=== PATIENT | female | born 1990 | race Hispanic/Latino ===

== ENCOUNTER 2021-07-17 09:26 | Outpatient (CLI) | payer OTHER | END 2021-07-17 09:27 | disposition home or self-care (01) | LOC: CSHMAMMO 09:26 | PROVIDERS: ATTEND Family Medicine | DX: N63.13 Unspecified lump in the right breast, lower outer quadrant (principal); N63.15 Unspecified lump in the right breast, overlapping quadrants; N63.11 Unspecified lump in the right breast, upper outer quadrant; N63.23 Unspecified lump in the left breast, lower outer quadrant; N63.21 Unspecified lump in the left breast, upper outer quadrant; N63.24 Unspecified lump in the left breast, lower inner quadrant | CPT/HCPCS: 77066; G0279 ==

== ENCOUNTER 2022-05-09 08:30 | Outpatient (CLI) | payer BC | END 2022-05-09 08:31 | disposition home or self-care (01) | LOC: CSHLAB 08:30 | PROVIDERS: ATTEND Obstetrics & Gynecology | DX: Z20.822 Contact with and (suspected) exposure to COVID-19 (principal) | CPT/HCPCS: U0003; U0005 ==

== ENCOUNTER 2022-05-12 04:46 | Inpatient (IN) | payer BC ==
[2022-05-12] MEDS: Lactated Ringer's 1,000 ML IV SCH ×2 (05:12→15:27)
[2022-05-12 05:23] VITALS: BMI 27.1
[2022-05-12] MEDS ORDERED: Lidocaine 1% (PF) 30 ML VIAL SC PRN (05:29)
[2022-05-12] MEDS ORDERED: Ondansetron PF 4 MG/2 ML Vial IVP PRN ×3 (05:29→14:54)
[2022-05-12] MEDS ORDERED: Butorphanol Tartrate 1 MG/ML VIAL SLOW IVP PRN (05:29)
[2022-05-12] MEDS ORDERED: hydrALAZINE 20 MG/ML VIAL SLOW IVP PRN ×2 (05:29→14:54)
[2022-05-12] MEDS ORDERED: HYDROcodone/Acetaminophen 5/325 mg Tablet PO PRN ×3 (05:29→14:54)
[2022-05-12] MEDS ORDERED: Acetaminophen 500 MG TAB PO PRN ×2 (05:29→14:54)
[2022-05-12] MEDS ORDERED: Promethazine HCl 25 MG/ML VIAL IM PRN ×2 (05:29→06:26)
[2022-05-12] MEDS ORDERED: Misoprostol 200 MCG TAB PR PRN (05:29)
[2022-05-12] MEDS ORDERED: Methylergonovine 0.2 MG/ML VIAL IM PRN (05:29)
[2022-05-12] MEDS ORDERED: NS w/ Oxytocin 30 units 500 ML IV SCH ×2 (05:30)
[2022-05-12 05:42] LABS: Hemoglobin 13.4 g/dL (12.0-15.5); Mean Corpuscular HGB CONC 34.8 g/dL (32.0-36.0); Mean Corpuscular Hemoglobin 33.5 pg (27.0-33.0); Mean Corpuscular Volume 96.3 fl (81.6-98.3); Mean Platelet Volume 10.2 fl (7.4-10.4); Platelet Count 251 10x3/uL (150-450); RBC Distribution Width 12.5 % (11.5-14.5)
[2022-05-12] MEDS ORDERED: Fentanyl 2 mcg/Bup 0.1% Cadd 100 ML ONE (05:45)
[2022-05-12 06:22] LABS: Hep B Surf Ag Non-Reactive S/CO (NonReactive)
[2022-05-12 06:23] LABS: Syphilis Antibody Nonreactive (Nonreactive); Syphilis Antibody Index 0.04 S/CO (<1.00 Non-Reactive)
[2022-05-12 06:25] LABS: HBSAg Index 0.17 S/CO (0-0.99)
[2022-05-12] MEDS ORDERED: Acetaminophen 325 MG TAB PO PRN (06:26)
[2022-05-12] MEDS ORDERED: diphenhydrAMINE 50 MG/ML VIAL IVP PRN (06:26)
[2022-05-12] MEDS ORDERED: Naloxone HCl 0.4 mg/ml Vial IVP PRN ×2 (06:26)
[2022-05-12] MEDS ORDERED: Lactated Ringer's 500 ML IV PRN (06:26)
[2022-05-12] MEDS ORDERED: Moisturizing Cream (Eucerin) 113 GM JAR TOP PRN (06:26)
[2022-05-12] MEDS ORDERED: ePHEDrine Sulfate 50 MG/10 ML VIAL SLOW IVP PRN (06:26)
[2022-05-12] MEDS ORDERED: Fentanyl 2 mcg/Bupivacaine 0.1% Cassette 100 ML EPIDURAL SCH (06:30)
[2022-05-12] MEDS ORDERED: Communication Order-Pharmacy FS SCH (06:30)
[2022-05-12] MEDS ORDERED: Bupivacaine/Epinephrine 0.25% 30 ML VIAL ONE (08:00)
[2022-05-12] MEDS ORDERED: Preparation H Ointment 28 GM TUBE PR PRN (14:54)
[2022-05-12] MEDS ORDERED: Boostrix 0.5 ML (Tdap) VIAL IM ONE (14:54)
[2022-05-12] MEDS ORDERED: Bisacodyl 10 MG SUPP PR PRN (14:54)
[2022-05-12] MEDS ORDERED: Milk Of Magnesia 30 ML UDCUP PO PRN (14:54)
[2022-05-12] MEDS ORDERED: diphenhydrAMINE 25 MG CAP PO PRN (14:54)
[2022-05-12] MEDS: Ferrous Sulfate 325 MG TAB PO SCH (15:27)
[2022-05-12] MEDS: Docusate 100 MG CAP PO SCH (21:11)
[2022-05-13] MEDS: Docusate 100 MG CAP PO SCH (08:59)
[2022-05-13] MEDS ORDERED: Prenatal Vitamin 1 TAB PO SCH (09:00)
[2022-05-13] MEDS: Ferrous Sulfate 325 MG TAB PO SCH (09:03)
[2022-05-13 14:07] VITALS: BP 108/68; TEMP 97.9
== END 2022-05-13 15:05 | disposition home or self-care (01) | DRG 807 ==
LOC: CSHLD/OP 04:46 → CSHLD 05:22 → CSHPP 14:54
PROVIDERS: ADMIT Obstetrics & Gynecology; ATTEND Obstetrics & Gynecology
PROC: 10E0XZZ Delivery of Products of Conception, External Approach (ICD-10-PCS; principal; 2022-05-12)
PROC: 0HQ9XZZ Repair Perineum Skin, External Approach (ICD-10-PCS; 2022-05-12)
DX: O26.893 Other specified pregnancy related conditions, third trimester (principal); Z37.0 Single live birth; Z67.31 Type AB blood, Rh negative; Z3A.39 39 weeks gestation of pregnancy; O70.0 First degree perineal laceration during delivery; Z88.8 Allergy status to other drugs, medicaments and biological substances; Z88.0 Allergy status to penicillin; Z91.048 Other nonmedicinal substance allergy status
CPT/HCPCS: 51702; 85027; 86780; 86850; 86900; 86901; 87340; 99285; J7120

== ENCOUNTER 2025-10-09 09:50 | Day surgery (SDC) | payer BC ==
[2025-10-06 11:57] VITALS: BMI 25.1
[2025-10-06 12:09] LABS: Hematocrit 40.4 % (34.9-44.5); Hemoglobin 13.7 g/dL (12.0-15.5); Mean Corpuscular Hemoglobin 32.2 pg (27.0-33.0); Mean Corpuscular Volume 95.1 fL (81.6-98.3); Platelet Count 331 10x3/uL (150-450); Red Blood Cell (RBC) Count 4.25 10x6/uL (3.90-5.03); White Blood Cell (WBC) Count 12.26 10x3/uL (3.5-10.5)
[2025-10-09] MEDS ORDERED: Tranexamic Acid 1,000 MG/10 ML VIAL ONE (11:39)
[2025-10-09] MEDS ORDERED: Methylergonovine 0.2 MG/ML VIAL ONE (11:39)
[2025-10-09] MEDS ORDERED: PROPOFOL 20 ML ONE (11:43)
[2025-10-09] MEDS ORDERED: Gabapentin 300 MG CAP ONE (11:50)
[2025-10-09] MEDS ORDERED: Famotidine/PF 20 mg/2ml Vial ONE (11:51)
== END 2025-10-09 17:39 | disposition home or self-care (01) ==
LOC: CSHSDC 09:50
PROVIDERS: ATTEND Obstetrics & Gynecology
PROC: 10D07Z8 Extraction of Products of Conception, Other, Via Natural or Artificial Opening (ICD-10-PCS; principal; 2025-10-09)
DX: O02.1 Missed abortion (principal); Z90.89 Acquired absence of other organs; Z88.8 Allergy status to other drugs, medicaments and biological substances; Z88.0 Allergy status to penicillin; Z88.6 Allergy status to analgesic agent; Z79.899 Other long term (current) drug therapy
CPT/HCPCS: 85027; 86850; 86900; 86901; 88305; 88342; J1100; J1308; J2210; J2250; J2704